=== PATIENT | female | born 1965 | race Caucasian/White ===

== ENCOUNTER 2017-08-27 10:43 | Outpatient (CLI) | END 2017-08-27 10:44 | disposition home or self-care (01) | LOC: FCC-LAB 10:43 | PROVIDERS: ATTEND Nurse Practitioner Family | DX: I10 Essential (primary) hypertension (principal); J44.9 Chronic obstructive pulmonary disease, unspecified; K21.9 Gastro-esophageal reflux disease without esophagitis; E78.5 Hyperlipidemia, unspecified; E03.9 Hypothyroidism, unspecified; Z79.899 Other long term (current) drug therapy | CPT/HCPCS: 36415; 80053; 80061; 81001; 84439; 84443; 85025; 87086 ==

== ENCOUNTER 2017-11-18 10:00 | Outpatient (CLI) | END 2017-11-18 10:01 | disposition home or self-care (01) | LOC: FCC-LAB 10:00 | PROVIDERS: ATTEND Nurse Practitioner Family | DX: E78.5 Hyperlipidemia, unspecified (principal); I10 Essential (primary) hypertension; K21.9 Gastro-esophageal reflux disease without esophagitis | CPT/HCPCS: 36415; 80053; 80061; 85025 ==

== ENCOUNTER 2017-11-21 12:07 | Outpatient (CLI) | payer OTHER | END 2017-11-21 12:08 | disposition home or self-care (01) | LOC: FCC-LAB 12:07 | PROVIDERS: ATTEND Nurse Practitioner Family | DX: E03.9 Hypothyroidism, unspecified (principal); R73.09 Other abnormal glucose | CPT/HCPCS: 36415; 83037; 84439; 84443 ==

== ENCOUNTER 2017-11-25 11:57 | Outpatient (CLI) | payer OTHER | END 2017-11-25 11:58 | disposition home or self-care (01) | LOC: FCC-LAB 11:57 | PROVIDERS: ATTEND Nurse Practitioner Family | DX: R30.0 Dysuria (principal) | CPT/HCPCS: 81001; 87086 ==

== ENCOUNTER 2018-01-28 14:34 | Outpatient (CLI) | payer OTHER ==
--- NOTE | 2018-01-28 15:08 | DI ---
EXAM: Two views of the chest. History: Bronchitis. Findings: Heart size is within normal limits. No focal consolidation. No appreciable pleural fluid and no pneumothorax. No acute osseous abnormalities. There may be bronchial wall thickening. Impression: There may be bronchial wall thickening but there is no evidence for pneumonia.
== END 2018-01-28 14:35 | disposition home or self-care (01) ==
LOC: FCC-LAB 14:34 → RAD 14:35
PROVIDERS: ATTEND Family Medicine
DX: J40 Bronchitis, not specified as acute or chronic (principal)

== ENCOUNTER 2018-02-04 15:42 | Outpatient (CLI) | payer OTHER ==
--- NOTE | 2018-02-04 16:22 | US ---
EXAM: Left lower extremity venous Doppler History: Left lower extremity pain and edema. Technique: Multiple sonographic images through the left lower extremity were obtained. Color duplex Doppler was used to interrogate vascular flow. Findings: The left common femoral, greater saphenous, profunda, superficial femoral, popliteal, freddy agge, posterior tibial and anterior tibial veins demonstrate spontaneous flow with normal compression and normal augmentation. Impression: No sonographic evidence for deep venous thrombosis
== END 2018-02-04 15:43 | disposition home or self-care (01) ==
LOC: RAD 15:42
PROVIDERS: ATTEND Family Medicine
DX: R60.9 Edema, unspecified (principal); M79.662 Pain in left lower leg; R30.0 Dysuria; R32 Unspecified urinary incontinence; R06.02 Shortness of breath; R63.5 Abnormal weight gain
CPT/HCPCS: 36415; 80053; 84443; 85025; 87086

== ENCOUNTER 2018-07-04 09:49 | Outpatient (CLI) | payer OTHER | END 2018-07-04 09:50 | disposition home or self-care (01) | LOC: RHC-LAB 09:49 → FCC-LAB 09:50 | PROVIDERS: ATTEND Nurse Practitioner Family | DX: E87.6 Hypokalemia (principal) | CPT/HCPCS: 36415; 84132 ==

== ENCOUNTER 2018-08-05 10:47 | Outpatient (CLI) | payer OTHER | END 2018-08-05 10:48 | disposition home or self-care (01) | LOC: RHC-LAB 10:47 → FCC-LAB 10:48 | PROVIDERS: ATTEND Family Medicine | DX: R05 Cough (principal) | CPT/HCPCS: 87502 ==

== ENCOUNTER 2024-06-01 12:36 | Observation (INO) ==
--- NOTE | 2024-06-01 13:52 | ED.PDOC ---
General ED Provider: Dr. CORINA KIRKLAND MD Chief Complaint: Cough Stated Complaint: 58-year-old female past medical history of first-degree heart block, diabetes, asthma, multiple episodes of pneumonia requiring mechanical ventilation in the past, bipolar disorder, gastric sleeve in the past, presents the emergency department chief complaint of cough and shortness of breath. Patient states this has been going on for the past 2 weeks. She saw her PCP on who had an x-ray, the results were reviewed by me which was read as atelectasis versus pneumonia. She was started on prednisone which she has finished azithromycin which she has finished and has been taking amoxicillin. She states she is here because she has not gotten better and feels like she is getting worse. She is feeling a cure she is feeling more general malaise and rundown. She had some nausea vomiting some diarrhea however this has improved. She reports that she did have some fevers. She is having pain on her bilateral ribs however no abdominal pain. No history of DVT or PE, no hemoptysis. Time Seen by Provider: 06/01/24 12:55 Information Source: Patient Primary Care Provider: GABRIELLE WHITESIDE MD Nursing and Triage Documentation Reviewed and Agree: Yes What is Opioid Naive?: *Opioid Naive implies the patient is not already taking opioids or not chronically receiving opioids on a daily basis. *PRN dosing is not "usually" associated with tolerance. *Patients are at higher risk of over-sedation and aspiration. What is Opioid Tolerant?: *Opioid Tolerance implies less than the expected response to an opioid. *Acquired tolerance is defined by the patient taking 60mg of oral morphine daily (or equianalgesic dose of another opioid) for 1 week or more. *Often associated with chronic pain. *May take more than usual dose to achieve desired pain control. Review of Systems Review Of Systems Constitutional: Reports Chills, Fever, Malaise and Weakness Eyes: Denies Blurred vision Ears, Nose, Mouth, Throat: Denies Throat pain or Throat swelling Respiratory: Reports Cough and Shortness of Breath; Denies Orthopnea Cardiac: Denies Edema, Irregular heart rate, Lightheadedness or Syncope GI: Denies Abdominal pain Endocrine: Reports Increased thirst PFSH Medical History Acute sinus infection J01.90 - Acute sinusitis, unspecified (ICD-10) Concern about STD in female without diagnosis Z71.1 - Person with feared health complaint in whom no diagnosis is made (ICD-10) Labia irritation N90.89 - Other specified noninflammatory disorders of vulva and perineum (ICD-10) Dysuria R30.0 - Dysuria (ICD-10) Perineal pain in female N94.9 - Unspecified condition associated with female genital organs and menstrual cycle (ICD-10) Vaginal discharge N89.8 - Other specified noninflammatory disorders of vagina (ICD-10) Vaginal candidiasis B37.3 - Candidiasis of vulva and vagina (ICD-10) Screening for STDs (sexually transmitted diseases) Z11.3 - Encounter for screening for infections with a predominantly sexual mode of transmission (ICD-10) Contact with and (suspected) exposure to infections with a predominantly sexual mode of transmission Z20.2 - Contact with and (suspected) exposure to infections with a predominantly sexual mode of transmission (ICD-10) Acute frontal sinusitis J01.10 - Acute frontal sinusitis, unspecified (ICD-10) Cough R05 - Cough (ICD-10) Fever R50.9 - Fever, unspecified (ICD-10) Body aches R52 - Pain, unspecified (ICD-10) Thigh pain M79.659 - Pain in unspecified thigh (ICD-10) Morbidly obese E66.01 - Morbid (severe) obesity due to excess calories (ICD-10) Hospital discharge follow-up Z09 - Encounter for follow-up examination after completed treatment for conditions other than malignant neoplasm (ICD-10) Essential hypertension I10 - Essential (primary) hypertension (ICD-10) BMI 60.0-69.9, adult Z68.44 - Body mass index (BMI) 60.0-69.9, adult (ICD-10) Diarrhea R19.7 - Diarrhea, unspecified (ICD-10) Blood in stool K92.1 - Melena (ICD-10) BMI 50.0-59.9, adult Z68.43 - Body mass index (BMI) 50.0-59.9, adult (ICD-10) Acquired hypothyroidism E03.9 - Hypothyroidism, unspecified (ICD-10) Chronic bronchitis On Trelegy device. Breathing well. Last Pulmonary function testing prior to COVID. Due to have these done soon w/ respiratory group. J42 - Unspecified chronic bronchitis (ICD-10) URI (upper respiratory infection) J06.9 - Acute upper respiratory infection, unspecified (ICD-10) Hyperglycemia R73.9 - Hyperglycemia, unspecified (ICD-10) Dysuria ua wnl in clinic today will obtain c&s R30.0 - Dysuria (ICD-10) Pleurisy Chest xray ER 01/07/24. Prednisone x 7 days. F/U in 1 week PRN. R09.1 - Pleurisy (ICD-10) Thyroid disorder E07.9 - Disorder of thyroid, unspecified (ICD-10) Cough R05 - Cough (ICD-10) Asthma J45.909 - Unspecified asthma, uncomplicated (ICD-10) Thyroid disorder E07.9 - Disorder of thyroid, unspecified (ICD-10) Parkinsons G20 - Parkinson's disease (ICD-10) Gastroesophageal reflux disease K21.9 - Gastro-esophageal reflux disease without esophagitis (ICD-10) Chronic obstructive pulmonary disease J44.9 - Chronic obstructive pulmonary disease, unspecified (ICD-10) H/O: pneumonia Z87.01 - Personal history of pneumonia (recurrent) (ICD-10) Arthritis M19.90 - Unspecified osteoarthritis, unspecified site (ICD-10) Sleep apnea On CPAP G47.30 - Sleep apnea, unspecified (ICD-10) Family History Mother Hypertension Thyroid disorder Stroke FATHER Substance abuse SISTER Substance abuse BROTHER Substance abuse Grandfather/Grandmother Substance abuse Grandfather/Grandmother Substance abuse Social History Smoking and tobacco status: Never smoker Alcohol intake: never Substance use type: does not use Michelle/caodaism: ZOROASTRIANISM Special michelle needs: No Agree to transfusion: Yes Adopted: No Caregiver/support person: No Foster care: No Household members: spouse Housing: house Lives independently: Yes Daycare: no daycare Number of children: 3 Number of grandchildren: 6 Highest education level completed: GED or equivalent Financial difficulty paying for basics: somewhat hard service: No intermediate: No Current occupational status: disabled 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 [employer] Pets and animals: Yes Leisure activites: reading History of recent travel: No Do you think of yourself as: straight/heterosexual Current gender identity: female Seatbelt use: always Helmet use: Yes Drives intoxicated or rides with intoxicated fleet driver: No Water heater temperature set < 120 degrees: Yes Working smoke detector in home: Yes Fire extinguisher in home: Yes Carbon monoxide detector in home: Yes Firearms in home: No Surgical History H/O tooth extraction K08.409 - Partial loss of teeth, unspecified cause, unspecified class (ICD- 10) Hx of total knee replacement right Z96.659 - Presence of unspecified artificial knee joint (ICD-10) History of oophorectomy Lumpectomy of breast (~2014) left breast Status post hysterectomy (~08/1991) Z90.710 - Acquired absence of both cervix and uterus (ICD-10) Female Reproductive History Menstrual Age of Menarche: 15 Hx Hysterectomy: Yes Hx Tubal Ligation: No Date of menopause: 01/09/91 Physical Exam Physical Exam Appearance: Reports Well-appearing and No pain distress Eyes: Reports MELQUIADES, EOMI and Conjunctiva clear ENT: Reports Oropharynx normal and Dry mucosa; Denies Erythema or Exudate Neck: Supple Respiratory: Reports Airway patent, Respirations nonlabored and Wheezes (Left side greater than right); Denies Crackles or Retractions Cardiovascular: Reports RRR, Pulses normal and No murmur GI/: Reports Soft and Nontender; Denies Tender Musculoskeletal: Reports Normal strength and No edema Skin: Reports Warm Interpretation EKG Interpretation EKG Interpretation By: ED Physician Time of EKG #1: 14:22 Rate: Normal Rhythm: Sinus Ectopy: None [place]: NL ST Segment: Normal Interpretation: Artifact present Course Course 06/01/24 13:55 06/01/24 13:55 Orders, Labs, Meds: Lab Review 06/01/24 13:55 WBC 9.78 RBC 4.04 L Hgb 11.3 L Hct 35.3 L MCV 87.4 MCH 28.0 MCHC 32.0 RDW Coeff of Misael 13.2 Plt Count 293 Immature Gran % (Auto) 0.5 Neut % (Auto) 44.1 Lymph % (Auto) 46.3 Josephine % (Auto) 7.1 Eos % (Auto) 1.6 Baso % (Auto) 0.4 Neut # (Auto) 4.3 Lymph # (Auto) 4.5 H Josephine # (Auto) 0.7 Eos # (Auto) 0.2 Baso # (Auto) 0.0 Immature Gran # (Auto) 0.1 VBG pH 7.42 H VBG pCO2 34 L VBG pO2 67 H VBG HCO3 22.1 VBG O2 Saturation 93.4 H Sodium 139.5 Potassium 3.70 Chloride 109.1 H Carbon Dioxide 20.8 L Anion Gap 13.30 BUN 20.5 H Creatinine 1.08 Estimated GFR (MDRD) 52.00 BUN/Creatinine Ratio 18.98 Glucose 95.0 Lactic Acid 0.59 L Calcium 8.40 Magnesium 1.95 Total Bilirubin 0.42 AST 27.6 ALT 14.8 Alkaline Phosphatase 86.9 Troponin I < 0.012 NT-Pro-B Natriuret Pep 209 Total Protein 7.07 Albumin 3.87 Globulin 3.20 Albumin/Globulin Ratio 1.20 Lipase 91.4 TSH 1.830 Influ A Molecular Assay Negative by naat Influ B Molecular Assay Negative by naat RSV Antigen Negative by naat SARS CoV-2 RNA Rapid DERRICK Negative Orders Category Date Time Status OBSERVATION [PLACE PATIENT OBSERVATION] .TO MEDSURG ADMISSION 06/01/24 14:54 Active (NON-MONITORED BED) EKG-(ED ONLY) Stat CARDIO 06/01/24 13:44 Completed INCENTIVE SPIROMETRY Routine CARDIO 06/01/24 13:53 Ordered NEBULIZER TREATMENT Routine CARDIO 06/01/24 15:16 Active ACTIVITY .Early Mobilization for VTE Prevention CARE 06/01/24 15:14 Active BLOOD GLUCOSE MONITORING (MED/SURG) 0630,1100,1700,2100 CARE 06/01/24 15:15 Active CONTINUOUS PULSE OX (NURSING) PULSEOX CARE 06/01/24 13:53 Active GIVE HS SNACK 2100 CARE 06/01/24 15:15 Active INTAKE & OUTPUT Q8HR CARE 06/01/24 15:14 Active REMINDER: Give Insulin if Needed 0630,1100,1700,2100 CARE 06/01/24 15:14 Active TELEMETRY MONITORING TELE CARE 06/01/24 13:53 Active VITAL SIGNS Q4HR CARE 06/01/24 15:15 Active ADA 1800 ADONAY. DIET DIETARY 06/01/24 Dinner Ordered HS SNACK DIETARY 06/01/24 Dinner Ordered ED ACCUCHECK ASSESSMENT .ONCE EMERGENCY 06/01/24 13:44 Active BLOOD CULTURE Stat LAB 06/01/24 14:53 Ordered CBC W/ AUTO DIFF DAILY@0600 LAB 06/03/24 06:00 Ordered CBC W/ AUTO DIFF DAILY@0600 LAB 06/02/24 06:00 Ordered CBC W/ AUTO DIFF Stat LAB 06/01/24 13:55 Completed CMP [COMPREHENSIVE METABOLIC PANEL] Stat LAB 06/01/24 13:55 Completed COMPREHENSIVE METABOLIC PANEL DAILY@0600 LAB 06/03/24 06:00 Ordered COMPREHENSIVE METABOLIC PANEL DAILY@0600 LAB 06/02/24 06:00 Ordered COVID [SARS COV-2 RNA RAPID DERRICK] Stat LAB 06/01/24 13:55 Completed FLU A & B MOLECULAR [FLU A/B MOLECULAR] Stat LAB 06/01/24 13:55 Completed LACTIC ACID Stat LAB 06/01/24 13:55 Completed LEGIONELLA URINARY ANTIGEN Routine LAB 06/01/24 15:14 Uncollected LIPASE Stat LAB 06/01/24 13:55 Completed MAGNESIUM Stat LAB 06/01/24 13:55 Completed MRSA SCREEN Routine LAB 06/01/24 15:14 Uncollected PROBNP ED [NT-PROBNP(ED)] Stat LAB 06/01/24 13:55 Completed RSV Stat LAB 06/01/24 13:55 Completed SPUTUM CULTURE Routine LAB 06/01/24 15:14 Uncollected STREP PNEUMO AG, URINE Routine LAB 06/01/24 15:14 Ordered THYROID STIMULATING HORMONE Stat LAB 06/01/24 13:55 Completed TROPONIN I Stat LAB 06/01/24 13:55 Completed VBG [VENOUS BLOOD GAS] Stat LAB 06/01/24 13:55 Completed Insulin Regular, Human [Humulin R (10Ml)] Meds 06/01/24 15:18 Active See Protocol SUBCUT PRN PRN Ipratropium/Albuterol Neb [Duoneb] Meds 06/01/24 13:45 Discontinued 3 ml NEB ONCE ONE Ipratropium/Albuterol Neb [Duoneb] Meds 06/01/24 18:00 Active 3 ml NEB RTQ6H Levofloxacin/D5w [Levaquin 750 mg/150 ml D5w] Meds 06/02/24 15:00 Ordered 750 mg in 150 ml IV DAILY Levofloxacin/D5w [Levaquin 750 mg/150 ml D5w] Meds 06/01/24 14:53 Active 750 mg in 150 ml IV ONCE Methylprednisolone Sod Succ/Pf [Solu-Medrol 40 mg] Meds 06/01/24 21:00 Active [address] CHEST W/O CONTRAST Stat RADS 06/01/24 13:44 Completed Medications Generic Name Dose Route Start Last Admin Trade Name Freq PRN Reason Stop Dose Admin Albuterol/Ipratropium 3 ml 06/01/24 18:00 Ipratropium/Albuterol Vial.Cristian [facility] RTQ6H ANGEL Levofloxacin/Dextrose 750 mg in 150 mls @ 100 mls/hr 06/01/24 14:53 Levaquin 750 Mg/150 Ml D5w IV 06/01/24 16:22 ONCE ONE Levofloxacin/Dextrose 750 mg in 150 mls @ 100 mls/hr 06/02/24 15:00 Levaquin 750 Mg/150 Ml D5w IV 06/05/24 14:59 DAILY ANGEL Insulin Human Regular 0 unit 06/01/24 15:18 Insulin Regular, Human 100 Unit/Ml (10ml) Vial SUBCUT PRN PRN Hyperglycemia Protocol Methylprednisolone Sodium Succinate 40 mg 06/01/24 21:00 Methylprednisolone Sod Succ/Pf 40 Mg/Ml Vial IVP Q8HR ANGEL Discontinued Medications Generic Name Dose Route Start Last Admin Trade Name Freq PRN Reason Stop Dose Admin Albuterol/Ipratropium 3 ml 06/01/24 13:45 06/01/24 13:57 Ipratropium/Albuterol Vial.Cristian RUEDA 06/01/24 13:46 3 ml ONCE ONE Administration Vital Signs: Temp Pulse Resp BP Pulse Ox 06/01/24 13:14 98.1 F 79 20 147/71 H 97 Discharge Plan Discharge Patient Disposition: ADMITTED INPATIENT Discharge Problem: Pneumonia Prescriptions: No Action oxcarbazepine [Trileptal] 300 MG tablet 300 mg PO BID carbidopa-levodopa [Sinemet] 1 EACH tablet 1 ea PO QID Qty: 2 Rx Instructions: 2 tabs QID hydroxyzine HCl 50 MG tablet 50 mg PO TID PRN (Reason: Anxiety) Qty: 90 cholecalciferol (vitamin D3) 1,250 mcg (50,000 unit) capsule 50,000 unit PO WEEKLY sumatriptan succinate 50 mg tablet See Rx Instructions PO .COMPLEX Qty: 90 1RF Rx Instructions: take 1 tab at onset of headache; if no relief may repeat 1 tab after at least 2 hrs; max = 4 tabs/24 hr PO ondansetron 4 mg tablet,disintegrating 4 mg PO TID PRN (Reason: nausea) Qty: 30 5RF losartan 25 mg tablet 12.5 mg PO QDAY Qty: 30 1RF atorvastatin [Lipitor] 40 mg tablet 40 mg PO QDAY Qty: 30 5RF levothyroxine 50 mcg tablet See Rx Instructions .ROUTE .COMPLEX Qty: 90 3RF Dose Instruction: TAKE ONE TABLET DAILY Rx Instructions: TAKE ONE TABLET DAILY metformin 1,000 mg tablet 1,000 mg PO BID Qty: 60 3RF Rx Instructions: 1/2 po QHS x 7D, then 1/2 BID x 7D then 1/2 am and 1 po pm x 7 then BID Linzess 290 mcg capsule 290 mcg PO DAILY Qty: 30 5RF Trulicity 1.5 mg/0.5 mL pen injector See Rx Instructions .ROUTE .COMPLEX Qty: 2 5RF Dose Instruction: INJECT 0.5 ML EVERY WEEK Rx Instructions: INJECT 0.5 ML EVERY WEEK albuterol sulfate 90 mcg/actuation HFA aerosol inhaler See Rx Instructions .ROUTE .COMPLEX Qty: 8.5 1RF Dose Instruction: INHALE TWO PUFFS EVERY FOUR HOURS NEEDED FOR WHEEZING OR SHORTNESS OF BREATH Rx Instructions: INHALE TWO PUFFS EVERY FOUR HOURS NEEDED FOR WHEEZING OR SHORTNESS OF BREATH omeprazole 40 mg capsule,delayed release(DR/EC) See Rx Instructions .ROUTE .COMPLEX Qty: 60 2RF Dose Instruction: TAKE ONE CAPSULE TWICE DAILY Rx Instructions: TAKE ONE CAPSULE TWICE DAILY cyclobenzaprine 5 mg tablet 5 mg PO TID PRN (Reason: muscle spasm) Qty: 90 0RF tramadol 50 mg tablet 50 mg PO Q8H PRN (Reason: pain) Qty: 90 0RF (DME) C.NEBULIZER Misc See Rx Instructions .ROUTE Qty: 1 0RF Rx Instructions: q 4hours PRN wheezing/cough. Current neb machine has reached end of functional life. doxepin 75 mg capsule 75 mg PO BEDTIME asenapine maleate 10 mg tablet, sublingual 10 mg SUBLINGUAL DAILY carvedilol 6.25 mg tablet 6.25 mg PO 2XD bupropion HCl 100 mg tablet sustained-release 12 hr 100 mg PO QAM buspirone 15 mg tablet 15 mg PO DAILY (DME) NovoFine Plus 32 gauge x 1/6" needle See Rx Instructions .ROUTE .MEDSUPPLY Qty: 100 5RF Rx Instructions: As directed amitriptyline 10 mg tablet 20 mg PO QDAY Qty: 60 4RF Rx Instructions: DOSE decreased 01/22/22 amoxicillin 500 mg capsule 1,000 mg PO Q8H 7 Days Qty: 42 0RF fluticasone propionate 50 mcg/actuation spray,suspension 1 spray intranasal BID Qty: 15.8 3RF Rx Instructions: administer into each nostril Did you review [place] [employer]O ASSET MANAGER for ALL controlled substances?: Not Applicable ED Provider: CORINA KIRKLAND Physician Progress Note: 56-year-old female history of recurrent pneumonia, presenting with cough malaise feeling rundown chest x-ray with potential pneumonia started on broad antibiotics. Not getting any better she is afebrile she is satting 95% at the bedside she is in no distress however she does have some wheezing and rhonchi on the left side greater than right. Does seem clinically consistent with a viral versus bacterial pneumonia, possibly superimposed asthma exacerbation as well. Given she recently had a chest x-ray which was equivocal we will get a CT to better assess for pneumonia, increased thirst potential hyperglycemia, will rule out DKA as well. Patient not having hemoptysis. This does not seem clinically consistent with DVT. She is not having orthopnea her physical exam does not seem consistent with CHF exacerbation. Given she is going to be getting a CT will forego an x-ray to defer any excess radiation, CBC CMP and reevaluate. Patient may need admission for failed outpatient antibiotics if showing pneumonia. Viral illness on the differential as well which may explain why patient is not improving. Patient's CT came back positive for multifocal pneumonia. Discussed with hospitalist, ordered blood cultures started on Levaquin, viral studies still pending.
[2024-06-01] MEDS: DUONEB NEB ONE (13:57)
[2024-06-01 14:02] LABS: BASOPHILS % (AUTO) 0.4 % (0.0-3.0); EOSINOPHILS # (AUTO) 0.2 K/ul (0.0-0.7); EOSINOPHILS % (AUTO) 1.6 % (0.0-7.0); HEMATOCRIT 35.3 % (37.0-47.0); HEMOGLOBIN 11.3 g/dl (12.0-16.0); IMMATURE GRANULOCYTE # (AUTO) 0.1 (0.0-1.0); IMMATURE GRANULOCYTE % (AUTO) 0.5 % (0.0-5.0); LYMPHOCYTES # (AUTO) 4.5 K/uL (0.60-3.4); LYMPHOCYTES % (AUTO) 46.3 (10.0-50.0); MEAN CORPUSCULAR VOLUME 87.4 fl (81.0-99.0); MONOCYTES # (AUTO) 0.7 K/uL (0.4-2.0); MONOCYTES % (AUTO) 7.1 (0-10); NEUTROPHILS # (AUTO) 4.3 K/ul (2.0-6.9); NEUTROPHILS % (AUTO) 44.1 % (42.2-75.2); PLATELET COUNT 293 10^3/uL (140-440); RDW COEFFICIENT OF VARIATION 13.2 % (11.6-14.8); RED BLOOD COUNT 4.04 10^6/ul (4.20-5.40); WHITE BLOOD COUNT 9.78 K/ul (4.6-10.2)
[2024-06-01 14:09] LABS: VBG HCO3 22.1 (22-26); VBG OXYGEN SATURATION 93.4 (60-80); VBG PH 7.42 (7.30-7.40)
[2024-06-01 14:16] LABS: ALANINE AMINOTRANSFERASE 14.8 U/L (0-35); ALBUMIN 3.87 g/dL (3.5-5.0); ALKALINE PHOSPHATASE 86.9 U/L (38-126); ASPARTATE AMINO TRANSFERASE 27.6 U/L (14-36); BILIRUBIN,TOTAL 0.42 mg/dL (0.2-1.3); BLOOD UREA NITROGEN 20.5 mg/dL (7-17); CARBON DIOXIDE 20.8 mmol/L (22-30.0); CHLORIDE 109.1 mmol/L (98-107); CREATININE 1.08 mg/dL (0.60-1.30); LIPASE 91.4 U/L (23-300); MAGNESIUM 1.95 mg/dL (1.6-2.3); SODIUM 139.5 mmol/L (134.5-145); TOTAL PROTEIN 7.07 g/dL (6.3-8.2)
[2024-06-01 14:30] LABS: TROPONIN I < 0.012 ng/ml (0.0000-0.120)
--- NOTE | 2024-06-01 14:45 | CT ---
EXAM: CHEST CT WITHOUT CONTRAST 06/01/2024 HISTORY: Shortness of breath. TECHNIQUE: Axial CT images were obtained through the chest without the administration of intravenous contrast. Coronal and sagittal reformatted images were also submitted for interpretation. COMPARISON: Chest radiograph 05/28/2024. FINDINGS: The lower neck is within normal limits. Major airways are patent. No pneumothorax or pleural fluid. Ground-glass opacities in the right upper and middle lobes suggestive of multifocal pneumonia. [facility] rt-term follow-up advised. The heart size is normal without pericardial effusion. The unenhanced thoracic aorta is normal in si ze. No lymphadenopathy allowing for limitation by lack of IV contrast. Soft tissue structures are unremarkable. The visualized portions of the upper abdomen demonstrate small hiatal hernia. Surgical changes from prior gastric bypass. The bones are intact. IMPRESSION: - Ground-glass opacities in the right upper and middle lobes suggestive of multifocal pneumonia. [facility] rt-term follow-up advised. - Small hiatal hernia. Surgical changes from prior gastric bypass. All CT scans are performed using dose optimization techniques as appropriate to the performed exam an d include at least one of the following: Automated exposure control, adjustment of the mA and/or kV according t o size, and the use of iterative reconstruction technique.
[2024-06-01 14:49] LABS: MOLECULAR FLU A NEGATIVE BY NAAT (NEGATIVE); MOLECULAR FLU B NEGATIVE BY NAAT (NEGATIVE); SARS COV-2 RNA RAPID NAAT NEGATIVE (NEGATIVE)
[2024-06-01 14:54] LABS: RSV MOLECULAR NEGATIVE BY NAAT (NEGATIVE)
[2024-06-01] MEDS ORDERED: HUMULIN R (10ML) SUBCUT PRN (15:18)
[2024-06-01] MEDS: LEVAQUIN 750 MG/150 ML D5W 750 MG/150 ML BAG IV ONE (15:57)
[2024-06-01] MEDS: DUONEB NEB SCH (17:43)
[2024-06-01 17:45] VITALS: BMI 47.7
--- NOTE | 2024-06-01 17:45 | PCM ---
Date of Service Date Seen by Provider: 06/01/24 Time Seen by Provider: 15:15 Admit Day/Time Admission Date: 06/01/24 Reason for Admission Chief Complaint: PNEUMONIA Hospital Provider Hospital Provider: MIGUE TAVERAS, [facility] [place] Care Physician Primary Care Physician: GABRIELLE WHITESIDE MD History of Present Illness History of Present Illness: 58 yo female presented to the ER from home with complaints of shortness of breath. Patient reports she has been sick with non-productive cough, congestion, and fever for 2 weeks. States that she saw her PCP 5 days ago, chest x-ray was completed, and she was diagnosed with pneumonia. At that time, she was prescribed a Z pack (which she has completed the course of), augmentin, and a medrol pack. Reports that fever has stopped but symptoms are not improving and she now has shortness of breath on exertion. Reports she feels as if she has mucus in her chest but is unable to cough it up. Patient found to have multi- focal pneumonia upon evaluation in ER. Admitted to med/surg observation due to failing outpatient antibiotics. Case Discussed With Case Discussed With: Patient's case was discussed with the ER Physicians, Dr. Hester. [facility] Medical History Acute sinus infection J01.90 - Acute sinusitis, unspecified (ICD-10) Concern about STD in female without diagnosis Z71.1 - Person with feared health complaint in whom no diagnosis is made (ICD-10) Labia irritation N90.89 - Other specified noninflammatory disorders of vulva and perineum (ICD-10) Dysuria R30.0 - Dysuria (ICD-10) Perineal pain in female N94.9 - Unspecified condition associated with female genital organs and menstrual cycle (ICD-10) Vaginal discharge N89.8 - Other specified noninflammatory disorders of vagina (ICD-10) Vaginal candidiasis B37.3 - Candidiasis of vulva and vagina (ICD-10) Screening for STDs (sexually transmitted diseases) Z11.3 - Encounter for screening for infections with a predominantly sexual mode of transmission (ICD-10) Contact with and (suspected) exposure to infections with a predominantly sexual mode of transmission Z20.2 - Contact with and (suspected) exposure to infections with a predominantly sexual mode of transmission (ICD-10) Acute frontal sinusitis J01.10 - Acute frontal sinusitis, unspecified (ICD-10) Cough R05 - Cough (ICD-10) Fever R50.9 - Fever, unspecified (ICD-10) Body aches R52 - Pain, unspecified (ICD-10) Thigh pain M79.659 - Pain in unspecified thigh (ICD-10) Morbidly obese E66.01 - Morbid (severe) obesity due to excess calories (ICD-10) Hospital discharge follow-up Z09 - Encounter for follow-up examination after completed treatment for conditions other than malignant neoplasm (ICD-10) Essential hypertension I10 - Essential (primary) hypertension (ICD-10) BMI 60.0-69.9, adult Z68.44 - Body mass index (BMI) 60.0-69.9, adult (ICD-10) Diarrhea R19.7 - Diarrhea, unspecified (ICD-10) Blood in stool K92.1 - Melena (ICD-10) BMI 50.0-59.9, adult Z68.43 - Body mass index (BMI) 50.0-59.9, adult (ICD-10) Acquired hypothyroidism E03.9 - Hypothyroidism, unspecified (ICD-10) Chronic bronchitis On Trelegy device. Breathing well. Last Pulmonary function testing prior to COVID. Due to have these done soon w/ respiratory group. J42 - Unspecified chronic bronchitis (ICD-10) Hyperglycemia R73.9 - Hyperglycemia, unspecified (ICD-10) Dysuria ua wnl in clinic today will obtain c&s R30.0 - Dysuria (ICD-10) Pleurisy Chest xray ER 01/07/24. Prednisone x 7 days. F/U in 1 week PRN. R09.1 - Pleurisy (ICD-10) Thyroid disorder E07.9 - Disorder of thyroid, unspecified (ICD-10) Cough R05 - Cough (ICD-10) Asthma J45.909 - Unspecified asthma, uncomplicated (ICD-10) Thyroid disorder E07.9 - Disorder of thyroid, unspecified (ICD-10) Parkinsons G20 - Parkinson's disease (ICD-10) Gastroesophageal reflux disease K21.9 - Gastro-esophageal reflux disease without esophagitis (ICD-10) Chronic obstructive pulmonary disease J44.9 - Chronic obstructive pulmonary disease, unspecified (ICD-10) H/O: pneumonia Z87.01 - Personal history of pneumonia (recurrent) (ICD-10) Arthritis M19.90 - Unspecified osteoarthritis, unspecified site (ICD-10) Sleep apnea On CPAP G47.30 - Sleep apnea, unspecified (ICD-10) Surgical History H/O tooth extraction K08.409 - Partial loss of teeth, unspecified cause, unspecified class (ICD- 10) Hx of total knee replacement right Z96.659 - Presence of unspecified artificial knee joint (ICD-10) History of oophorectomy Lumpectomy of breast (~2014) left breast Status post hysterectomy (~08/1991) Z90.710 - Acquired absence of both cervix and uterus (ICD-10) Family History Mother Hypertension Thyroid disorder Stroke FATHER Substance abuse SISTER Substance abuse BROTHER Substance abuse Grandfather/Grandmother Substance abuse Grandfather/Grandmother Substance abuse Social History Smoking and tobacco status: Never smoker Alcohol intake: never Substance use type: does not use 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 Special michelle needs: No Agree to transfusion: Yes Adopted: No Caregiver/support person: No Foster care: No Household members: spouse Housing: house Lives independently: Yes Daycare: no daycare Number of children: 3 Number of grandchildren: 6 Highest education level completed: GED or equivalent Financial difficulty paying for basics: somewhat hard service: No correction: No Current occupational status: disabled 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 Pets and animals: Yes Leisure activites: reading History of recent travel: No Do you think of yourself as: straight/heterosexual Current gender identity: female Seatbelt use: always Helmet use: Yes Drives intoxicated or rides with intoxicated fork truck driver: No Water heater temperature set < 120 degrees: Yes Working smoke detector in home: Yes Fire extinguisher in home: Yes Carbon monoxide detector in home: Yes Firearms in home: No Allergies Allergies Allergy/AdvReac Type Severity Reaction Status Date / Time empagliflozin (From AdvReac Intermediate yeast Verified 06/01/24 13:20 Jardiance) infection latex AdvReac Intermediate skin Verified 06/01/24 13:20 irritaion Current Medications Home Medications carbidopa 25 mg-levodopa 100 mg tablet (Sinemet) 1 ea PO QID ##2 08/19/17 [His tory Confirmed 06/01/24 Last Taken Unknown] oxcarbazepine 300 mg tablet (Trileptal) 300 mg PO BID 08/19/17 [History Confirmed 06/01/24 Last Taken Unknown] hydroxyzine HCl 50 mg tablet 50 mg PO TID PRN Anxiety #90 tab-caps 03/17/18 [History Confirmed 06/01/24 Last Taken Unknown] pen needle, diabetic 32 gauge x 1/6" (NovoFine Plus) #100 ea 10/20/20 [Rx Confirmed 06/01/24 Last Taken Unknown] amitriptyline 10 mg tablet 20 mg (2 x 10 mg) PO QDAY #60 tabs 01/22/22 [Rx Confirmed 06/01/24 Last Taken Unknown] cholecalciferol (vitamin D3) 1,250 mcg (50,000 unit) capsule 50,000 unit PO WEEKLY 01/22/22 [History Confirmed 06/01/24 Last Taken Unknown] sumatriptan succinate 50 mg tablet See Rx Instructions PO .COMPLEX #90 tabs 01/23/22 [Rx Confirmed 06/01/24 Last Taken Unknown] asenapine maleate 10 mg sublingual tablet 10 mg sublingual DAILY 06/26/22 [History Confirmed 06/01/24 Last Taken Unknown] doxepin 75 mg capsule 75 mg PO BEDTIME 06/26/22 [History Confirmed 06/01/24 Last Taken Unknown] ondansetron 4 mg disintegrating tablet 4 mg PO TID PRN nausea #30 tab-caps 04/09/23 [Rx Confirmed 06/01/24 Last Taken Unknown] atorvastatin 40 mg tablet (Lipitor) 40 mg PO QDAY #30 tabs 07/24/23 [Rx Confirmed 06/01/24 Last Taken Unknown] losartan 25 mg tablet 12.5 mg (1/2 x 25 mg) PO QDAY #30 tabs 07/24/23 [Rx Confirmed 06/01/24 Last Taken Unknown] levothyroxine 50 mcg tablet See Rx Instructions .Route .COMPLEX #90 tabs 09/11/23 [Rx Confirmed 06/01/24 Last Taken Unknown] metformin 1,000 mg tablet 1,000 mg PO BID #60 tabs 09/25/23 [Rx Confirmed 06/01/24 Last Taken Unknown] linaclotide 290 mcg capsule (Linzess) 290 mcg PO DAILY #30 tab-caps 01/08/24 [Rx Confirmed 06/01/24 Last Taken Unknown] fluticasone propionate 50 mcg/actuation nasal spray,suspension 1 spray intranasal BID #15.8 grams 01/09/24 [Rx Confirmed 06/01/24 Last Taken Unknown] dulaglutide 1.5 mg/0.5 mL subcutaneous pen injector ([employer]) See Rx Instructions .Route .COMPLEX #2 mL 02/21/24 [Rx Confirmed 06/01/24 Last Taken Unknown] albuterol sulfate 90 mcg/actuation aerosol inhaler See Rx Instructions .Route .COMPLEX #8.5 grams 03/02/24 [Rx Confirmed 06/01/24 Last Taken Unknown] omeprazole 40 mg capsule,delayed release See Rx Instructions .Route .COMPLEX #60 caps 04/23/24 [Rx Confirmed 06/01/24 Last Taken Unknown] cyclobenzaprine 5 mg tablet 5 mg PO TID PRN muscle spasm #90 tabs 04/29/24 [Rx Confirmed 06/01/24 Last Taken Unknown] tramadol 50 mg tablet 50 mg PO Q8H PRN pain #90 tabs 05/05/24 [Rx Confirmed 06/01/24 Last Taken Unknown] amoxicillin 500 mg capsule 1,000 mg (2 x 500 mg) PO Q8H 7 days #42 caps 05/28/24 [Rx Confirmed 06/01/24 Last Taken Unknown] C.NEBULIZER #1 ea 06/01/24 [Rx Confirmed 06/01/24 Last Taken Unknown] bupropion HCl 100 mg tablet,12 hr sustained-release 100 mg PO QAM 06/01/24 [History Confirmed 06/01/24 Last Taken Unknown] buspirone 15 mg tablet 15 mg PO DAILY 06/01/24 [History Confirmed 06/01/24 Last Taken Unknown] carvedilol 6.25 mg tablet 6.25 mg PO 2XD 06/01/24 [History Confirmed 06/01/24 Last Taken Unknown] Home Albuterol/Ipratropium (Ipratropium/Albuterol Vial.Neb) 3 ml NEB RTQ6H ANGEL Last Admin: 06/01/24 17:43 Dose: 3 ml Levofloxacin/Dextrose (Levaquin 750 Mg/150 Ml D5w) 750 mg in 150 mls @ 100 mls/hr IV DAILY [facility] Stop: 06/05/24 08:59 Insulin Human Regular (Insulin Regular, Human 100 Unit/Ml (10ml) Vial) 0 unit SUBCUT PRN PRN; Protocol PRN Reason: Hyperglycemia Methylprednisolone Sodium Succinate (Methylprednisolone Sod Succ/Pf 40 Mg/Ml Vial) 40 mg IVP Q8HR [facility] Discontinued Medications Albuterol/Ipratropium (Ipratropium/Albuterol Vial.Neb) 3 ml NEB ONCE ONE Stop: 06/01/24 13:46 Last Admin: 06/01/24 13:57 Dose: 3 ml Levofloxacin/Dextrose (Levaquin 750 Mg/150 Ml D5w) 750 mg in 150 mls @ 100 mls/hr IV ONCE ONE Stop: 06/01/24 16:22 Last Admin: 06/01/24 15:57 Dose: 100 mls/hr Opioid Naive vs. Tolerant Does Patient Take Opioids?: No Is Patient Opioid Naive?: Yes What is Opioid Naive?: *Opioid Naive implies the patient is not already taking opioids or not chronically receiving opioids on a daily basis. *PRN dosing is not "usually" associated with tolerance. *Patients are at higher risk of over-sedation and aspiration. Is Patient Opioid Tolerant?: No What is Opioid Tolerant?: *Opioid Tolerance implies less than the expected response to an opioid. *Acquired tolerance is defined by the patient taking 60mg of oral morphine daily (or equianalgesic dose of another opioid) for 1 week or more. *Often associated with chronic pain. *May take more than usual dose to achieve desired pain control. Review of Systems Constitutional: Reports Fever, Fatigue and Chills Head: Reports Normocephalic Eyes: Reports No symptoms Ears: Reports No symptoms Nose: Reports No symptoms Mouth: Reports No symptoms Throat: Reports No symptoms Cardiovascular: Reports No symptoms Respiratory: Reports Cough and Shortness of air Gastrointestinal: Reports No symptoms Genitourinary: Reports No Symptoms Musculoskeletal: Reports No symptoms Endocrine: Reports No symptoms Hematology: Reports No symptoms Immunology: Reports No symptoms Neurological: Reports No symptoms Psychiatric: Reports No symptoms Physical examination Most Recent Vital Signs: Most Recent Vital Signs Temperature 98.1 F 06/01/24 13:14 Temperature Source Oral 06/01/24 13:14 Pulse Rate 79 06/01/24 13:14 Respiratory Rate 20 06/01/24 13:14 Blood Pressure 147/71 H 06/01/24 13:14 O2 Sat by Pulse Oximetry 97 06/01/24 13:14 Height 5 ft 2 in 06/01/24 13:14 Weight 119 kg 06/01/24 13:14 Appearance: Positive No Apparent Distress, Alert and Oriented x3 and Ill- Appearing Skin: Positive Other (pale) HEENT: Positive PERRLA Neck: Positive Supple, Lesions, Bruits, Adenopathy, JVD, Non-Enlarged Thyroid, Non-Tender Thyroid, Midline Trachea, Other and Not Examined Chest/Lungs: Positive Symmetrical With Equal Breath Sounds and Rhonci (diminished); Negative Good Air Movement all 4 Lung Craig Heart: Positive RRR and Pulses Normal GI/: Positive Soft, Nontender, Bowel Sounds Normal and No Distention Musculoskeletal: Positive Not Examined Extremities: Positive Intact Peripheral Pulses, Stable Joints Without Laxity and Good ROM in All Joints Neurological: Positive Sensation Intact, Motor intact, Alert, Oriented and Muscle Strength 5/5 in Upper and Lower Extremities Bilaterally Labs This Visit Labs This Visit: Labs This Visit 06/01/24 13:55 WBC 9.78 RBC 4.04 L Hgb 11.3 L Hct 35.3 L MCV 87.4 MCH 28.0 MCHC 32.0 RDW Coeff of Misael 13.2 Plt Count 293 Immature Gran % (Auto) 0.5 Neut % (Auto) 44.1 Lymph % (Auto) 46.3 [place] % (Auto) 7.1 Eos % (Auto) 1.6 Baso % (Auto) 0.4 Neut # (Auto) 4.3 Lymph # (Auto) 4.[address] # (Auto) 0.7 Eos # (Auto) 0.2 Baso # (Auto) 0.0 Immature Gran # (Auto) 0.1 VBG pH 7.42 H VBG pCO2 34 L VBG pO2 67 H VBG HCO3 22.1 VBG O2 Saturation 93.4 H Sodium 139.5 Potassium 3.70 Chloride 109.1 H Carbon Dioxide 20.8 L Anion Gap 13.30 BUN 20.5 H Creatinine 1.08 Estimated GFR (MDRD) 52.00 BUN/Creatinine Ratio 18.98 Glucose 95.0 Lactic Acid 0.59 L Calcium 8.40 Magnesium 1.95 Total Bilirubin 0.42 AST 27.6 ALT 14.8 Alkaline Phosphatase 86.9 Troponin I < 0.012 NT-Pro-B Natriuret Pep 209 Total Protein 7.07 Albumin 3.87 Globulin 3.20 Albumin/Globulin Ratio 1.20 Lipase 91.4 TSH 1.830 Influ A Molecular Assay Negative by naat Influ B Molecular Assay Negative by naat RSV Antigen Negative by naat SARS CoV-2 RNA Rapid DERRICK Negative Imaging Imaging: EXAM: CHEST CT WITHOUT CONTRAST 06/01/2024 FINDINGS: The lower neck is within normal limits. Major airways are patent. No pneumothorax or pleural fluid. Ground-glass opacities in the right upper and middle lobes suggestive of multifocal pneumonia. Short-term follow-up advised. The heart size is normal without pericardial effusion. The unenhanced thoracic aorta is normal in size. No lymphadenopathy allowing for limitation by lack of IV contrast. Soft tissue structures are unremarkable. The visualized portions of the upper abdomen demonstrate small hiatal hernia. Surgical changes from prior gastric bypass. The bones are intact. IMPRESSION: - Ground-glass opacities in the right upper and middle lobes suggestive of multifocal pneumonia. Short-term follow-up advised. - Small hiatal hernia. Surgical changes from prior gastric bypass. Review Statement Review Statement: I have independently reviewed and interpreted the labs/EKGs/imaging that were ordered by the ER provider. I have reviewed all outside records that are available currently in our EMR including imaging/notes/labs from previous vis its. Plan Plan: 1. Community Acquired Pneumonia - failed outpatient antibiotics, levaquin Q24H, steroids, nebs, legionella, strep pneumo, mrsa, and sputum culture ordered 2. Hypertension - chronic, continue home medications 3. DM2 - chronic, hold oral agents, accuchecks qid with ssi 4. Parkinson's disease - Continue home medications 5. Bipolar - Continue home medications DVT Prophylaxis: Ambulation Time Spent: Greater than 80 minutes spent with patient, 50% of the time spent with this patient was devoted to counseling and coordination of care. Advanced Care Plannin minutes spent discussing advance care planning. Smoking Cessation: 3-10 minutes spent discussing smoking cessation. Disposition: Admit to: Med/Surg Observation Full Code Discussed Plan of Care with Dr. Keegan Swanson. Medications Medication Orders: Medications Ordered Category Date Time Status Insulin Regular, Human [Humulin R (10Ml)] Meds 06/01/24 15:18 Active See Protocol SUBCUT PRN PRN Ipratropium/Albuterol Neb [Duoneb] Meds 06/01/24 18:00 Active 3 ml NEB RTQ6H Levofloxacin/D5w [Levaquin 750 mg/150 ml D5w] Meds 06/02/24 09:00 Active 750 mg in 150 ml IV DAILY Methylprednisolone Sod Succ/Pf [Solu-Medrol 40 mg] Meds 06/01/24 21:00 Active 40 mg IVP Q8HR
[2024-06-01] MEDS ORDERED: ATARAX PO PRN (19:14)
[2024-06-01] MEDS ORDERED: FLEXERIL PO PRN (19:14)
[2024-06-01] MEDS: SOLU-MEDROL 40 MG IVP SCH (20:17)
[2024-06-01] MEDS: SINEMET 25-100 PO SCH (20:18)
[2024-06-01] MEDS: TRILEPTAL PO SCH (20:18)
[2024-06-01] MEDS: COREG PO SCH (20:18)
[2024-06-01] MEDS: PRILOSEC PO SCH (20:18)
[2024-06-01] MEDS: SINEQUAN PO SCH (20:18)
[2024-06-01] MEDS: ULTRAM PO PRN (20:22)
[2024-06-01] MEDS: SINEMET 25-100 PO ONE (21:27)
[2024-06-02] MEDS: TYLENOL PO PRN (02:27)
[2024-06-02 05:28] LABS: BASOPHILS % (AUTO) 0.2 % (0.0-3.0); EOSINOPHILS % (AUTO) 0.2 % (0.0-7.0); HEMATOCRIT 35.5 % (37.0-47.0); HEMOGLOBIN 11.4 g/dl (12.0-16.0); IMMATURE GRANULOCYTE # (AUTO) 0.1 (0.0-1.0); LYMPHOCYTES # (AUTO) 1.6 K/uL (0.60-3.4); LYMPHOCYTES % (AUTO) 25.3 (10.0-50.0); MEAN CORPUSCULAR HEMOGLOBIN 27.9 pg (27.0-31.0); MEAN CORPUSCULAR HGB CONC 32.1 (31.8-35.4); MONOCYTES # (AUTO) 0.1 K/uL (0.4-2.0); MONOCYTES % (AUTO) 1.9 (0-10); NEUTROPHILS # (AUTO) 4.4 K/ul (2.0-6.9); NEUTROPHILS % (AUTO) 71.4 % (42.2-75.2); PLATELET COUNT 302 10^3/uL (140-440); RDW COEFFICIENT OF VARIATION 13.2 % (11.6-14.8); RED BLOOD COUNT 4.08 10^6/ul (4.20-5.40); WHITE BLOOD COUNT 6.16 K/ul (4.6-10.2)
[2024-06-02 05:41] LABS: ALANINE AMINOTRANSFERASE 11.1 U/L (0-35); ALBUMIN 3.92 g/dL (3.5-5.0); ALKALINE PHOSPHATASE 81.6 U/L (38-126); ASPARTATE AMINO TRANSFERASE 42.9 U/L (14-36); BILIRUBIN,TOTAL 0.42 mg/dL (0.2-1.3); BLOOD UREA NITROGEN 21.6 mg/dL (7-17); CALCIUM 8.36 mg/dL (8.4-10.2); CARBON DIOXIDE 23.1 mmol/L (22-30.0); CHLORIDE 107.3 mmol/L (98-107); CREATININE 1.05 mg/dL (0.60-1.30); GLUCOSE 124.5 mg/dL (74-106); POTASSIUM 5.12 mmol/L (3.5-5.1); SODIUM 137.3 mmol/L (134.5-145); TOTAL PROTEIN 7.15 g/dL (6.3-8.2)
[2024-06-02] MEDS: SYNTHROID PO SCH (05:54)
[2024-06-02] MEDS: LEVAQUIN 750 MG/150 ML D5W 750 MG/150 ML BAG IV SCH (08:17)
[2024-06-02] MEDS: AMITIZA PO SCH (08:23)
[2024-06-02] MEDS: TOPAMAX PO SCH (08:25)
[2024-06-02] MEDS: SINEMET 25-100 PO SCH (08:25)
[2024-06-02] MEDS: LIPITOR PO SCH (08:25)
[2024-06-02] MEDS: BUSPAR PO SCH (08:29)
[2024-06-02] MEDS ORDERED: SYNTHROID PO SCH (09:00)
--- NOTE | 2024-06-02 09:27 | PCM.PROG ---
Date/Time Seen Date Seen by Provider: 06/02/24 Time Seen by Provider: 08:45 Provider [facility] Chief Complaint Chief Complaint: PNEUMONIA Subjective Subjective: Reports some improvement today. Feels breathing is mildly improved. Cough is starting to become productive. Objective Appearance: Positive No Apparent Distress and Alert and Oriented x3 Chest/Lungs: Positive Symmetrical With Equal Breath Sounds, Rhonci and Wheezes Heart: Positive RRR and Pulses Normal GI/: Positive Soft, Nontender, Bowel Sounds Normal, No Distention and No Organomegaly Musculoskeletal: Positive Not Examined Neurological: Positive Sensation Intact, Motor intact, Alert, Oriented and Muscle Strength 5/5 in Upper and Lower Extremities Bilaterally Vital Signs Vital Signs: Vital Signs: Last 24 Hours 06/01/24 13:14 06/01/24 17:23 06/01/24 17:23 Temperature 98.1 F 97.0 F L Temperature Source Oral Temporal Artery Scan Pulse Rate 79 86 Respiratory Rate 20 20 20 Blood Pressure 147/71 H Blood Pressure Mean Blood Pressure Right Arm 166/86 Blood Pressure Location Blood Pressure Position Sitting O2 Sat by Pulse Oximetry 97 97 Oxygen Delivery Method Room Air Room Air Height 5 ft 2 in 5 ft 2 in Weight 119 kg 118.4 kg Telemetry Type Telemetry Monitoring Telemetry Heart Rate Telemetry SPO2 EKG TX Interval EKG QRS Interval Telemetry Strip Reading Pulse Oximetry Type Pulse Oximetry Monitoring 06/01/24 17:50 06/01/24 19:00 06/01/24 19:00 Temperature Temperature Source Pulse Rate Respiratory Rate Blood Pressure Blood Pressure Mean Blood Pressure Right Arm Blood Pressure Location Blood Pressure Position O2 Sat by Pulse Oximetry 97 Oxygen Delivery Method Room Air Room Air Room Air Height Weight Telemetry Type Telemetry Monitoring Telemetry Heart Rate Telemetry SPO2 EKG TX Interval EKG QRS Interval Telemetry Strip Reading Pulse Oximetry Type Remote Telemetry Pulse Oximetry Monitoring Started 06/01/24 19:00 06/01/24 19:20 06/01/24 19:54 Temperature Temperature Source Pulse Rate Respiratory Rate 20 Blood Pressure Blood Pressure Mean Blood Pressure Right Arm Blood Pressure Location Blood Pressure Position O2 Sat by Pulse Oximetry Oxygen Delivery Method Room Air Room Air Height Weight Telemetry Type Remote Telemetry Telemetry Monitoring Continues Telemetry Heart Rate 91 Telemetry SPO2 97 EKG TX Interval 0.17 EKG QRS Interval 0.08 Telemetry Strip Reading SR Pulse Oximetry Type Pulse Oximetry Monitoring 06/01/24 20:53 06/01/24 20:53 06/01/24 22:00 Temperature 97.8 F Temperature Source Temporal Artery Scan Pulse Rate 81 Respiratory Rate 18 Blood Pressure 135/92 H Blood Pressure Mean 106 Blood Pressure Right Arm Blood Pressure Location Left Arm Blood Pressure Position Supine O2 Sat by Pulse Oximetry 98 Oxygen Delivery Method Room Air Room Air Room Air Height Weight Telemetry Type Telemetry Monitoring Telemetry Heart Rate Telemetry SPO2 EKG TX Interval EKG QRS Interval Telemetry Strip Reading Pulse Oximetry Type Pulse Oximetry Monitoring 06/01/24 22:52 06/02/24 00:00 06/02/24 01:00 Temperature Temperature Source Pulse Rate Respiratory Rate Blood Pressure Blood Pressure Mean Blood Pressure Right Arm Blood Pressure Location Blood Pressure Position O2 Sat by Pulse Oximetry Oxygen Delivery Method Room Air Room Air Room Air Height Weight Telemetry Type Telemetry Monitoring Telemetry Heart Rate Telemetry SPO2 EKG TX Interval EKG QRS Interval Telemetry Strip Reading Pulse Oximetry Type Pulse Oximetry Monitoring 06/02/24 01:00 06/02/24 01:00 06/02/24 01:54 Temperature Temperature Source Pulse Rate Respiratory Rate Blood Pressure Blood Pressure Mean Blood Pressure Right Arm Blood Pressure Location Blood Pressure Position O2 Sat by Pulse Oximetry 96 Oxygen Delivery Method Room Air Room Air Height Weight Telemetry Type Remote Telemetry Telemetry Monitoring Continues Telemetry Heart Rate 73 Telemetry SPO2 96 EKG TX Interval 0.18 EKG QRS Interval 0.08 Telemetry Strip Reading SR Pulse Oximetry Type Remote Telemetry Pulse Oximetry Monitoring Continues 06/02/24 01:54 06/02/24 03:00 06/02/24 04:00 Temperature 97.2 F L Temperature Source Temporal Artery Scan Pulse Rate 72 Respiratory Rate 20 Blood Pressure 143/95 H Blood Pressure Mean 111 Blood Pressure Right Arm Blood Pressure Location Left Arm Blood Pressure Position Supine O2 Sat by Pulse Oximetry 96 Oxygen Delivery Method Room Air Room Air Room Air Height Weight Telemetry Type Telemetry Monitoring Telemetry Heart Rate Telemetry SPO2 EKG TX Interval EKG QRS Interval Telemetry Strip Reading Pulse Oximetry Type Pulse Oximetry Monitoring 06/02/24 05:00 06/02/24 05:15 06/02/24 05:46 Temperature 97.5 F L Temperature Source Temporal Artery Scan Pulse Rate 75 Respiratory Rate 16 Blood Pressure 140/86 Blood Pressure Mean 104 Blood Pressure Right Arm Blood Pressure Location Left Arm Blood Pressure Position Supine O2 Sat by Pulse Oximetry 95 Oxygen Delivery Method Room Air Room Air Room Air Height Weight Telemetry Type Telemetry Monitoring Telemetry Heart Rate Telemetry SPO2 EKG TX Interval EKG QRS Interval Telemetry Strip Reading Pulse Oximetry Type Pulse Oximetry Monitoring 06/02/24 07:00 06/02/24 07:00 06/02/24 08:00 Temperature Temperature Source Pulse Rate Respiratory Rate Blood Pressure Blood Pressure Mean Blood Pressure Right Arm Blood Pressure Location Blood Pressure Position O2 Sat by Pulse Oximetry 97 Oxygen Delivery Method Room Air Room Air Room Air Height Weight Telemetry Type Telemetry Monitoring Telemetry Heart Rate Telemetry SPO2 EKG TX Interval EKG QRS Interval Telemetry Strip Reading Pulse Oximetry Type Remote Telemetry Pulse Oximetry Monitoring Continues 06/02/24 08:55 Temperature Temperature Source Pulse Rate Respiratory Rate Blood Pressure Blood Pressure Mean Blood Pressure Right Arm Blood Pressure Location Blood Pressure Position O2 Sat by Pulse Oximetry Oxygen Delivery Method Room Air Height Weight Telemetry Type Telemetry Monitoring Telemetry Heart Rate Telemetry SPO2 EKG TX Interval EKG QRS Interval Telemetry Strip Reading Pulse Oximetry Type Pulse Oximetry Monitoring Lab Results Lab Results: Lab Results: Last 24 Hours 06/02/24 06/01/24 05:15 13:55 WBC 6.16 9.78 RBC 4.08 L 4.04 L Hgb 11.4 L 11.3 L Hct 35.5 L 35.3 L MCV 87.0 87.4 MCH 27.9 28.0 MCHC 32.1 32.0 RDW Coeff of Misael 13.2 13.2 Plt Count 302 293 Immature Gran % (Auto) 1.0 0.5 Neut % (Auto) 71.4 44.1 Lymph % (Auto) 25.3 46.3 [place] % (Auto) 1.9 7.1 Eos % (Auto) 0.2 1.6 Baso % (Auto) 0.2 0.4 Neut # (Auto) 4.4 4.3 Lymph # (Auto) 1.6 4.5 H [place] # (Auto) 0.1 L 0.7 Eos # (Auto) 0.0 0.2 Baso # (Auto) 0.0 0.0 Immature Gran # (Auto) 0.1 0.1 VBG pH 7.42 H VBG pCO2 34 L VBG pO2 67 H VBG HCO3 22.1 VBG O2 Saturation 93.4 H Sodium 137.3 139.5 Potassium 5.12 H 3.70 Chloride 107.3 H 109.1 H Carbon Dioxide 23.1 20.8 L Anion Gap 12.02 13.30 BUN 21.6 H 20.5 H Creatinine 1.05 1.08 Estimated GFR (MDRD) 54.00 52.00 BUN/Creatinine Ratio 20.57 18.98 Glucose 124.5 H 95.0 Lactic Acid 0.59 L Calcium 8.36 L 8.40 Magnesium 1.95 Total Bilirubin 0.42 0.42 AST 42.9 H 27.6 ALT 11.1 14.8 Alkaline Phosphatase 81.6 86.9 Troponin I < 0.012 NT-Pro-B Natriuret Pep 209 Total Protein 7.15 7.07 Albumin 3.92 3.87 Globulin 3.23 3.20 Albumin/Globulin Ratio 1.21 1.20 Lipase 91.4 TSH 1.830 Influ A Molecular Assay Negative by naat Influ B Molecular Assay Negative by naat RSV Antigen Negative by naat SARS CoV-2 RNA Rapid DERRICK Negative Additional Comments Additional Comments: I have independently reviewed and interpreted the labs/EKGs/imaging ordered during this hospital stay. I have reviewed outside records that are available in our EMR that pertain to medical stay including imaging/notes/labs from previous visits. Active Medications Active Medications: Medications Generic Name Dose Route Start Last Admin Trade Name Freq PRN Reason Stop Dose Admin Acetaminophen 650 mg 06/02/24 01:52 06/02/24 02:27 Acetaminophen 325 Mg Tablet PO 650 mg Q4H PRN Administration Pain Albuterol/Ipratropium 3 ml 06/01/24 18:00 06/02/24 05:53 Ipratropium/Albuterol Vial.Neb NEB 3 ml RTQ6H ANGEL Administration Atorvastatin Calcium 40 mg 06/02/24 09:00 06/02/24 08:25 Atorvastatin Calcium 20 Mg Tablet PO 40 mg DAILY ANGEL Administration Buspirone HCl 15 mg 06/02/24 09:00 06/02/24 08:29 Buspirone Hcl 10 Mg Tablet PO 15 mg DAILY ANGEL Administration Carbidopa/Levodopa 2 tab 06/02/24 09:00 06/02/24 08:25 Carbidopa/Levodopa 25/100 Tablet PO 2 tab QID ANGEL Administration Carvedilol 6.25 mg 06/01/24 21:00 06/02/24 08:44 Carvedilol 6.25 Mg Tablet PO 6.25 mg 2XD ANGEL Administration Cyclobenzaprine HCl 5 mg 06/01/24 19:14 Cyclobenzaprine Hcl 10 Mg Tablet PO TID PRN Spasms Doxepin HCl 75 mg 06/01/24 21:00 06/01/24 20:18 Doxepin Hcl 25 Mg Capsule PO 75 mg BEDTIME ANGEL Administration Hydroxyzine HCl 50 mg 06/01/24 19:14 Hydroxyzine Hcl 25 Mg Tablet PO TID PRN Anxiety Levofloxacin/Dextrose 750 mg in 150 mls @ 100 mls/hr 06/02/24 09:00 06/02/24 08:17 Levaquin 750 Mg/150 Ml D5w IV 06/05/24 08:59 100 mls/hr DAILY ANGEL Administration Insulin Human Regular 0 unit 06/01/24 15:18 Insulin Regular, Human 100 Unit/Ml (10ml) Vial SUBCUT PRN PRN Hyperglycemia Protocol Levothyroxine Sodium 50 mcg 06/02/24 06:00 06/02/24 05:54 Levothyroxine Sodium 50 Mcg Tablet PO 50 mcg QDAC2 ANGEL Administration Lubiprostone 24 mcg 06/02/24 09:00 06/02/24 08:23 Lubiprostone 24 Mcg Capsule PO 24 mcg BID ANGEL Administration Methylprednisolone Sodium Succinate 40 mg 06/01/24 21:00 06/02/24 05:53 Methylprednisolone Sod Succ/Pf 40 Mg/Ml Vial IVP 40 mg Q8HR ANGEL Administration Non-Formulary Medication 10 mg 06/02/24 09:00 Asenapine Maleate SL DAILY ANGEL Omeprazole 40 mg 06/01/24 21:00 06/02/24 08:16 Omeprazole 20 Mg Capsule.Dr PO 40 mg BID ANGEL Administration Oxcarbazepine 300 mg 06/01/24 21:00 06/02/24 08:22 Oxcarbazepine 150 Mg Tablet PO 300 mg BID ANGEL Administration Sodium Chloride 1 syr 06/01/24 21:00 06/02/24 05:53 0.9% Sodium Chloride 10 Ml Disp.Syrin IVF 1 syr Q8HR ANGEL Administration Topiramate 100 mg 06/02/24 09:00 06/02/24 08:25 Topiramate 50 Mg Tablet PO 100 mg DAILY ANGEL Administration Tramadol HCl 50 mg 06/01/24 19:14 06/01/24 20:22 Tramadol Hcl 50 Mg Tablet PO 50 mg Q8H PRN Administration Pain Plan Plan: 1. Community Acquired Pneumonia - failed outpatient antibiotics, levaquin Q24H, steroids, nebs, legionella, strep pneumo, mrsa, and sputum culture ordered 2. Hypertension - chronic, continue home medications 3. DM2 - chronic, hold oral agents, accuchecks qid with ssi 4. Parkinson's disease - Continue home medications 5. Bipolar - Continue home medications DVT Prophylaxis: Ambulation Review Statement Review Statement: I have personally discussed and reviewed the patient's visit/currently labs/imaging/decision making with Dr. Swanson, my supervising attending. Greater that 50 minutes spent with patient, 50% of the time spent with this patient was devoted to counseling and coordination of care.
[2024-06-02] MEDS: ASENAPINE MALEATE 10 MG SL SCH (17:20)
[2024-06-03 05:11] LABS: BASOPHILS % (AUTO) 0.2 % (0.0-3.0); HEMATOCRIT 35.5 % (37.0-47.0); HEMOGLOBIN 11.4 g/dl (12.0-16.0); IMMATURE GRANULOCYTE # (AUTO) 0.1 (0.0-1.0); IMMATURE GRANULOCYTE % (AUTO) 1.2 % (0.0-5.0); LYMPHOCYTES # (AUTO) 2.2 K/uL (0.60-3.4); LYMPHOCYTES % (AUTO) 18.7 (10.0-50.0); MEAN CORPUSCULAR HEMOGLOBIN 28.1 pg (27.0-31.0); MEAN CORPUSCULAR HGB CONC 32.1 (31.8-35.4); MEAN CORPUSCULAR VOLUME 87.4 fl (81.0-99.0); MONOCYTES # (AUTO) 0.7 K/uL (0.4-2.0); MONOCYTES % (AUTO) 5.5 (0-10); NEUTROPHILS # (AUTO) 8.9 K/ul (2.0-6.9); NEUTROPHILS % (AUTO) 74.4 % (42.2-75.2); PLATELET COUNT 349 10^3/uL (140-440); RDW COEFFICIENT OF VARIATION 13.2 % (11.6-14.8); RED BLOOD COUNT 4.06 10^6/ul (4.20-5.40)
[2024-06-03 05:13] LABS: WHITE BLOOD COUNT 11.92 K/ul (4.6-10.2)
[2024-06-03 05:21] LABS: ALANINE AMINOTRANSFERASE 14.9 U/L (0-35); ALBUMIN 4.09 g/dL (3.5-5.0); ASPARTATE AMINO TRANSFERASE 26.2 U/L (14-36); BILIRUBIN,TOTAL 0.3 mg/dL (0.2-1.3); BLOOD UREA NITROGEN 24.7 mg/dL (7-17); CALCIUM 9.13 mg/dL (8.4-10.2); CHLORIDE 108.1 mmol/L (98-107); CREATININE 0.94 mg/dL (0.60-1.30); GLUCOSE 159.4 mg/dL (74-106); POTASSIUM 4.51 mmol/L (3.5-5.1); SODIUM 138.8 mmol/L (134.5-145); TOTAL PROTEIN 7.44 g/dL (6.3-8.2)
--- NOTE | 2024-06-03 08:52 | DCSUM ---
Admission Date Admission Date: 06/01/24 Discharge Date Discharge Date: 06/03/24 Admission Diagnosis Admission Diagnosis: 1. Community Acquired Pneumonia Discharge Diagnosis Discharge Diagnosis: 1. Community Acquired Pneumonia - Improving 2. Hypertension - chronic, stable 3. DM2 - chronic, stable 4. Parkinson's disease - chronic, stable 5. Bipolar - chronic, stable Hospital Provider Hospital Provider: MIGUE TAVERAS, [facility] [place] Primary Care Physician: GABRIELLE WHITESIDE MD Summary of History and Physical Summary of History and Physical: 58 yo female presented to the ER from home with complaints of shortness of breath. Patient reports she has been sick with non-productive cough, congestion, and fever for 2 weeks. States that she saw her PCP 5 days ago, chest x-ray was completed, and she was diagnosed with pneumonia. At that time, she was prescribed a Z pack (which she has completed the course of), augmentin, and a medrol pack. Reports that fever has stopped but symptoms are not improving and she now has shortness of breath on exertion. Reports she feels as if she has mucus in her chest but is unable to cough it up. Patient found to have multi- focal pneumonia upon evaluation in ER. Admitted to med/surg observation due to failing outpatient antibiotics. Hospital Course Subjective: During stay, patient was treated for multi-focal community acquired pneumonia with levaquin due to failure of outpatient treatment with azithromycin and augmentin. She was also given steroids and nebulizer treatments. Cough became productive. Lung sounds improved from wheezing and rhonchi to clear. Did not require supplemental oxygen during stay. Strep pneumo, legionella, mrsa, and sputum culture collected and are pending. Will contact patient and PCP if any abnormalities with results. WBC mildly increased today. Likely due to steroid use. No fever or tachycardia present. D/c with 2 more days of levaquin to complete 5 day course. VSS. No changes to home medications. Appearance: Pleasant, No Apparent Distress and Alert HEENT: MMM, Supple and No JVD CVS: No Murmur, No Rubs and No Gallop Abdomen: Soft, Non-Tender and No Distention Respiratory: No Dyspnea Extremities: No Edema Vital Signs: Most Recent Vital Signs Temperature 97 F L 06/03/24 05:27 Temperature Source Temporal Artery Scan 06/03/24 05:27 Temperature Source Oral 06/01/24 13:14 Pulse Rate 71 06/03/24 05:27 Respiratory Rate 18 06/03/24 05:27 Blood Pressure 127/87 06/03/24 05:27 Blood Pressure Mean 100 06/03/24 05:27 Blood Pressure Right Arm 166/86 06/01/24 17:23 Blood Pressure Location Right Arm 06/03/24 05:27 Blood Pressure Position Supine 06/03/24 05:27 O2 Sat by Pulse Oximetry 98 06/03/24 05:27 Oxygen Delivery Method Room Air 06/03/24 08:00 Height 5 ft 2 in 06/01/24 17:23 Weight 118.4 kg 06/01/24 17:23 Telemetry Type Remote Telemetry 06/03/24 07:00 Telemetry Monitoring Continues 06/03/24 07:00 Telemetry Heart Rate 69 06/03/24 07:00 Telemetry SPO2 95 06/03/24 07:00 EKG FL Interval 0.14 06/03/24 07:00 EKG QRS Interval 0.17 H 06/03/24 07:00 Telemetry Strip Reading NSR 06/03/24 07:00 Pulse Oximetry Type Remote Telemetry 06/03/24 07:00 Pulse Oximetry Monitoring Continues 06/03/24 07:00 Imaging: EXAM: CHEST CT WITHOUT CONTRAST 06/01/2024 FINDINGS: The lower neck is within normal limits. Major airways are patent. No pneumothorax or pleural fluid. Ground-glass opacities in the right upper and middle lobes suggestive of multifocal pneumonia. Short-term follow-up advised. The heart size is normal without pericardial effusion. The unenhanced thoracic aorta is normal in size. No lymphadenopathy allowing for limitation by lack of IV contrast. Soft tissue structures are unremarkable. The visualized portions of the upper abdomen demonstrate small hiatal hernia. Surgical changes from prior gastric bypass. The bones are intact. IMPRESSION: - Ground-glass opacities in the right upper and middle lobes suggestive of multifocal pneumonia. Short-term follow-up advised. - Small hiatal hernia. Surgical changes from prior gastric bypass. Lab Results Last 24 Hours: 06/03/24 04:58 WBC 11.92 H D RBC 4.06 L Hgb 11.4 L Hct 35.5 L MCV 87.4 MCH 28.1 MCHC 32.1 RDW Coeff of Misael 13.2 Plt Count 349 Immature Gran % (Auto) 1.2 Neut % (Auto) 74.4 Lymph % (Auto) 18.7 [place] % (Auto) 5.5 Eos % (Auto) 0.0 Baso % (Auto) 0.2 Neut # (Auto) 8.9 H Lymph # (Auto) 2.2 [place] # (Auto) 0.7 Eos # (Auto) 0.0 Baso # (Auto) 0.0 Immature Gran # (Auto) 0.1 Sodium 138.8 Potassium 4.51 Chloride 108.1 H Carbon Dioxide 20.0 L Anion Gap 15.21 BUN 24.7 H Creatinine 0.94 Estimated GFR (MDRD) 62.00 BUN/Creatinine Ratio 26.27 Glucose 159.4 H Calcium 9.13 Total Bilirubin 0.30 AST 26.2 ALT 14.9 Alkaline Phosphatase 78.0 Total Protein 7.44 Albumin 4.09 Globulin 3.35 Albumin/Globulin Ratio 1.22 Discharge Instructions Discharge Planning: Discharge Planning > 40 minutes If patient is discharged with left ventricular systolic dysfunction: No Discharged with a beta sriram? [] If no, why not? [] Discharged with an trinh/arb? [] If no, why not? [] Diagnosis: Pneumonia Diet: Diabetic Activity: as tolerated Medications: [facility] 1 - Start tomorrow Discharge Medications: Medications at Discharge (Home Meds & RX) carbidopa 25 mg-levodopa 100 mg tablet (Sinemet) 1 ea PO QID ##2 08/19/17 oxcarbazepine 300 mg tablet (Trileptal) 300 mg PO BID 08/19/17 hydroxyzine HCl 50 mg tablet 50 mg PO TID PRN Anxiety #90 tab-caps 03/17/18 pen needle, diabetic 32 gauge x 1/6" (NovoFine Plus) #100 ea 10/20/20 amitriptyline 10 mg tablet 20 mg (2 x 10 mg) PO QDAY #60 tabs 01/22/22 cholecalciferol (vitamin D3) 1,250 mcg (50,000 unit) capsule 50,000 unit PO WEEKLY 01/22/22 asenapine maleate 10 mg sublingual tablet 10 mg sublingual DAILY 06/26/22 doxepin 75 mg capsule 75 mg PO BEDTIME 06/26/22 ondansetron 4 mg disintegrating tablet 4 mg PO TID PRN nausea #30 tab-caps 04/09/23 atorvastatin 40 mg tablet (Lipitor) 40 mg PO QDAY #30 tabs 07/24/23 levothyroxine 50 mcg tablet See Rx Instructions .Route .COMPLEX #90 tabs 09/11/23 metformin 1,000 mg tablet 1,000 mg PO BID #60 tabs 09/25/23 linaclotide 290 mcg capsule (Linzess) 290 mcg PO DAILY #30 tab-caps 01/08/24 dulaglutide 1.5 mg/0.5 mL subcutaneous pen injector (Trulicity) See Rx Instructions .Route .COMPLEX #2 mL 02/21/24 albuterol sulfate 90 mcg/actuation aerosol inhaler See Rx Instructions .Route .COMPLEX #8.5 grams 03/02/24 omeprazole 40 mg capsule,delayed release See Rx Instructions .Route .COMPLEX #60 caps 04/23/24 cyclobenzaprine 5 mg tablet 5 mg PO TID PRN muscle spasm #90 tabs 04/29/24 tramadol 50 mg tablet 50 mg PO Q8H PRN pain #90 tabs 05/05/24 amoxicillin 500 mg capsule 1,000 mg (2 x 500 mg) PO Q8H 7 days #42 caps 05/28/24 C.NEBULIZER #1 ea 06/01/24 buspirone 15 mg tablet 15 mg PO DAILY 06/01/24 carvedilol 6.25 mg tablet 6.25 mg PO 2XD 06/01/24 fluticasone propionate 50 mcg/actuation nasal spray,suspension 1 spray intra nasal BID PRN allergy symptoms 06/01/24 sumatriptan succinate 50 mg tablet See Rx Instructions PO .COMPLEX PRN migraine headache 06/01/24 topiramate 100 mg tablet 100 mg PO DAILY 06/01/24 Discharge Plan Discharge Discharge Orders: Discharge Patient (ONCE); Ordered 06/03/24 Ordered By: TRAV CRAWFORD Activity Restrictions/Additional Instructions: Diagnosis: Pneumonia Diet: Diabetic Activity: as tolerated Medications: [facility] 1 - Start tomorrow Instructions: Community Acquired Pneumonia (GEN) Patient Disposition: HOME SELF-CARE Prescriptions: New levofloxacin 750 mg tablet 750 mg PO DAILY Qty: 2 0RF Rx Instructions: Start 06/04/23 Continued oxcarbazepine [Trileptal] 300 MG tablet 300 mg PO BID carbidopa-levodopa [Sinemet] 1 EACH tablet 1 ea PO QID Qty: 2 Rx Instructions: 2 tabs QID hydroxyzine HCl 50 MG tablet 50 mg PO TID PRN (Reason: Anxiety) Qty: 90 cholecalciferol (vitamin D3) 1,250 mcg (50,000 unit) capsule 50,000 unit PO WEEKLY ondansetron 4 mg tablet,disintegrating 4 mg PO TID PRN (Reason: nausea) Qty: 30 5RF atorvastatin [Lipitor] 40 mg tablet 40 mg PO QDAY Qty: 30 5RF levothyroxine 50 mcg tablet See Rx Instructions .ROUTE .COMPLEX Qty: 90 3RF Dose Instruction: TAKE ONE TABLET DAILY Rx Instructions: TAKE ONE TABLET DAILY metformin 1,000 mg tablet 1,000 mg PO BID Qty: 60 3RF Rx Instructions: 1/2 po QHS x 7D, then 1/2 BID x 7D then 1/2 am and 1 po pm x 7 then BID Linzess 290 mcg capsule 290 mcg PO DAILY Qty: 30 5RF Trulicity 1.5 mg/0.5 mL pen injector See Rx Instructions .ROUTE .COMPLEX Qty: 2 5RF Dose Instruction: INJECT 0.5 ML EVERY WEEK Rx Instructions: INJECT 0.5 ML EVERY WEEK albuterol sulfate 90 mcg/actuation HFA aerosol inhaler See Rx Instructions .ROUTE .COMPLEX Qty: 8.5 1RF Dose Instruction: INHALE TWO PUFFS EVERY FOUR HOURS NEEDED FOR WHEEZING OR SHORTNESS OF BREATH Rx Instructions: INHALE TWO PUFFS EVERY FOUR HOURS NEEDED FOR WHEEZING OR SHORTNESS OF BREATH omeprazole 40 mg capsule,delayed release(DR/EC) See Rx Instructions .ROUTE .COMPLEX Qty: 60 2RF Dose Instruction: TAKE ONE CAPSULE TWICE DAILY Rx Instructions: TAKE ONE CAPSULE TWICE DAILY cyclobenzaprine 5 mg tablet 5 mg PO TID PRN (Reason: muscle spasm) Qty: 90 0RF tramadol 50 mg tablet 50 mg PO Q8H PRN (Reason: pain) Qty: 90 0RF (DME) C.NEBULIZER Misc See Rx Instructions .ROUTE Qty: 1 0RF Rx Instructions: q 4hours PRN wheezing/cough. Current neb machine has reached end of functional life. doxepin 75 mg capsule 75 mg PO BEDTIME asenapine maleate 10 mg tablet, sublingual 10 mg SUBLINGUAL DAILY carvedilol 6.25 mg tablet 6.25 mg PO 2XD buspirone 15 mg tablet 15 mg PO DAILY sumatriptan succinate 50 mg tablet See Rx Instructions PO .COMPLEX PRN (Reason: migraine headache) Rx Instructions: take 1 tab at onset of headache; if no relief may repeat 1 tab after at least 2 hrs; max = 4 tabs/24 hr orally PRN; fluticasone propionate 50 mcg/actuation spray,suspension 1 spray intranasal BID PRN (Reason: allergy symptoms) Rx Instructions: administer into each nostril topiramate 100 mg tablet 100 mg PO DAILY (DME) NovoFine Plus 32 gauge x 1/6" needle See Rx Instructions .ROUTE .MEDSUPPLY Qty: 100 5RF Rx Instructions: As directed Discontinued amitriptyline 10 mg tablet 20 mg PO QDAY Qty: 60 4RF Rx Instructions: DOSE decreased 01/22/22 amoxicillin 500 mg capsule 1,000 mg PO Q8H 7 Days Qty: 42 0RF Did you review [place] [employer] for ALL controlled substances?: No Discussed opioids are addictive and Narcan is available by prescription or from pharmacy.: No Referrals: GABRIELLE WHITESIDE MD [Primary Care Provider] - 06/04/24 8:45 am
[2024-06-03 10:35] VITALS: BP 132/75; PULSE 78; RESP 20; TEMP 97.9
[2024-06-03 15:14] LABS: SPECIMEN SOURCE Urine (.); STEP PNEUMO ORGANISM ID Not indicated. (.); STREP PNEUMO AG Negative (Negative); STREP PNEUMO BODY FLUID CULT Not indicated. (.)
== END 2024-06-03 12:33 | disposition home or self-care (01) ==
LOC: MEDSURG B 12:36 → ED 12:36 → MEDSURG B 17:10
PROVIDERS: ADMIT Hospitalist; ATTEND Nurse Practitioner Family
DX: F31.9 Bipolar disorder, unspecified; J18.9 Pneumonia, unspecified organism; Z20.822 Contact with and (suspected) exposure to COVID-19; Z51.81 Encounter for therapeutic drug level monitoring; G20.A1 Parkinson's disease without dyskinesia, without mention of fluctuations; Z98.84 Bariatric surgery status; I10 Essential (primary) hypertension; E11.9 Type 2 diabetes mellitus without complications; Z79.84 Long term (current) use of oral hypoglycemic drugs; Z79.899 Other long term (current) drug therapy